=== PATIENT | female | born 1980 | race Caucasian/White ===

== ENCOUNTER 2017-06-25 14:34 | Emergency (ER) | payer MEDICAID ==
[~2017-06-25] VITALS: Ht 160 cm; Wt 84.0 kg
[~2017-06-25 14:34] MED LIST: HYDR25TA6 PO
[2017-06-25 14:38] VITALS: Ht 160 cm; Wt 84.0 kg
[2017-06-25 15:39] VITALS: BP 175/98; PULSE 74; RESP 20; TEMP 98.3
[2017-06-25] MEDS ORDERED: HYDR25TA6 PO (15:43)
--- NOTE | 2017-06-25 18:22 | ERD ---
ER Documentation Chief Complaint Date/Time DATE: 06/25/17 TIME: 18:16 Chief Complaint blood pressure high and nausea, denies any pain HPI This is a 36-year-old female who presents the emergency department today complaining of not feeling well and feeling that her blood pressure is elevated. Patient states she has been told by several people that she has high blood pressure. Denies any headache, dizziness, blurred vision, nausea vomiting , abdominal pain. ROS All systems reviewed and are negative except as per history of present illness. Medications Home Meds Active Scripts Hydrochlorothiazide* (Hydrochlorothiazide*) 25 Mg Tab, 25 MG PO DAILY, #30 TAB Prov:KERRI MARTÍNEZ PA-C 06/25/17 Hydrochlorothiazide* (Hydrochlorothiazide*) 25 Mg Tab, 25 MG PO DAILY, #30 TAB Prov:KALPESH LIPSCOMB 05/16/16 Allergies Allergies: Coded Allergies: No Known Allergy (Verified , 08/06/13) PMhx/Soc History of Surgery: No Anesthesia Reaction: No Hx Neurological Disorder: No Hx Respiratory Disorders: No Hx Cardiac Disorders: No Hx Psychiatric Problems: No Hx Miscellaneous Medical Probl: No Hx Alcohol Use: No Hx Substance Use: No Hx Tobacco Use: No Smoking Status: Never smoker Physical Exam Vitals Vital Signs Date Time Temp Pulse Resp B/P Pulse Ox O2 Delivery O2 Flow Rate FiO2 06/25/17 15:39 98.3 74 20 175/98 97 Room Air 06/25/17 14:38 98.5 88 20 197/106 100 Physical Exam Const: talkative, NAD Head: Atraumatic Eyes: Normal Conjunctiva. PERRLA. EOM intact. ENT: Normal External Ears, Nose and Mouth. Neck: Full range of motion..~ No meningismus. Resp: Clear to auscultation bilaterally Cardio: Regular rate and rhythm, no murmurs Abd: Soft, non tender, non distended. Normal bowel sounds Skin: No petechiae or rashes Back: No midline or flank tenderness Ext: No cyanosis, or edema Neur: Awake and alert. Cranial nerves II through XII intact. No gait ataxia. Psych: Normal Mood and Affect Procedures/MDM This is a 28-year-old female who presents the emergency department today complaining of not feeling well feeling that her blood pressure is elevated. Patient denied any other complaints. Upon review of patient's medical records patient was seen here on May 16, 2017 after being sent here to the emergency department by her director of publications for elevated blood pressure in clinic. Patient had no symptoms at that time as well. Patient was given a prescription at that time for hydrochlorothiazide once daily. She had been instructed to follow-up with her primary care doctor. Upon further questioning, patient indicated that she did not do this because she felt fine after taking a blood pressure medication that she thought that everything was fine. I explained to the patient that she needs hypertensive management by primary care doctor. Patient reassured me that she would go to the clinic this time. Patient denies any complaints and I do not feel that she requires further workup or imaging at this time. She has no focal neurologic deficits and no gait ataxia. I have low suspicion for acute hemorrhage, hypertensive emergency, end organ damage. With the exception of her elevated blood pressure her vital signs are otherwise normal. I did recheck her blood pressure 175/98 and I did not feel it was necessary to give her blood pressure medication here in the emergency department given that she is asymptomatic. Patient was given a refill on the hydrochlorothiazide. She was also given a list of community resources. At this time the patient is stable for discharge and outpatient management. Patient should follow up with their PCP in the next 1-2 days. They may return to the emergency department sooner for any persistent or worsening of symptoms. Patient understood and agreed with the plan. Discussed the patient with Dr. Landaverde and he is in agreement with the plan. Departure Diagnosis: Primary Impression: Hypertension Hypertension type: unspecified Qualified Code: I10 - Hypertension, unspecified type Condition: Fair Patient Instructions: High Blood Pressure (Hypertension) [facility] Usted se guillaume hecho un examen mdico de control que le indica que no est en lidia condicin que requiera tratamiento urgente en el Departamento de Emergencia. Un estudio ms profundo y el tratamiento de brock condicin pueden esperar sin ningn riesgo hasta que usted sea atendida/o en el consultorio de brock mdico o lidia cl carmencita. Es responsabilidad suya arreglar lidia krista para el seguimiento del jessica. MANEJO DE CONDICIONES NO URGENTES EN EL FUTURO 1) Si usted tiene un mdico de atencin primaria: Usted debera llamar a brock mdico de atencin primaria antes de venir al departamento de emergencia. Despus de las horas de consultorio, brock doctor o brock asociado/a est disponible por telfono. El mdico o enfermero de elva en el servicio telefnico puede asesorarle por vance medio para atender el problema, o jessica contrario se puede programar lidia krista. 2) Si usted no tiene un mdico de atencin primaria: Llame al mdico o clnica de referencia que aparece abajo kenneth las horas de consultorio para hacer lidia krista para que le vean. CLINICAS: [facility] [phone] [facility] [phone] [facility] [phone] [facility] [phone] [facility] [address] [place] [phone] [address] [facility] [phone] [address] Additional Instructions: Llame al doctor MAANA y veronica lidia KRISTA PARA DENTRO DE 1-2 GOODRICH.Dgale a la secretaria que nosotros le instruimos hacer esta krista.Avise o llame si brock condicin se empeora antes de la krista. Regresa aqui si peor o no mejor. Take medication as prescribed. Make an appointment with primary care doctor in clinic for control of your blood pressure KERRI MARTÍNEZ PA-C Jun 25, 2017 18:22
== END 2017-06-25 16:06 | disposition home or self-care (01) ==
LOC: FTE 14:34
DX: I10 Essential (primary) hypertension (principal)
CPT/HCPCS: 99283

== ENCOUNTER 2018-10-01 16:19 | Emergency (ER) | END 2018-10-01 19:33 | disposition home or self-care (01) ==